=== PATIENT | male | born 1970 | race Caucasian/White ===

== ENCOUNTER 2017-02-27 08:34 | Emergency (ER) | payer SELFPAY ==
[2017-02-27 08:44] VITALS: BP 126/82
--- NOTE | 2017-02-27 10:52 | UC ---
Skin Complaint HPI - HPI Summary HPI Summary: SEVEN DAYS OF NEW RASH ON FRONT OF CHEST; HAS HAD CHRONIC ISSUE WITH SCALING OF HANDS AND HAS APPOINTMENT NEXT WEEK TO SEE A ARTIST CONSULTANT. NO KNOWN NEW PLANT, OR DETERGENT EXPOSURE. HAS TRIED OTC STEROID CREAM WITH NO SUCCESS. NO FEVER. NO COLD SYMPTOMS. NO FATIGUE. - History of Current Complaint Chief Complaint: UCGeneralIllness Time Seen by Provider: 02/27/17 10:02 Stated Complaint: RASH ON CHEST Hx Obtained From: Patient Onset/Duration: Gradual Onset, Lasting Days, Still Present Skin Exposure Onset/Duration: Days Ago Onset Severity: Mild Current Severity: Mild Pain Intensity: 0 Pain Scale Used: 0-10 Numeric Location: Discrete - ANTERIOR CHEST Character: Pruritus, Redness Aggravating: Nothing Alleviating: Nothing, OTC Creams/Salves Associated Signs & Symptoms: Positive: Rash. Negative: Nausea, Vomiting, Fever , Chills, Cough, Chest Pain, Hoarseness, Throat Tightening, Syncope, Drainage, Bruising, Tenderness, Red Streaks Related History: Possible Reaction to: Environmental Exposure - Allergy/Home Medications Allergies/Adverse Reactions: Allergies Allergy/AdvReac Type Severity Reaction Status Date / Time Penicillins Allergy Intermediate Itching Verified 02/27/17 08:39 Cefdinir [From Omnicef] AdvReac Intermediate Nausea And Verified 02/27/17 08:39 Vomiting Sodium Benzoate AdvReac Intermediate Nausea And Verified 02/27/17 08:39 [From Omnicef] Vomiting Home Medications: Home Medications Ibuprofen TAB* [Advil TAB*] 3 tab PO PRN 02/27/17 [History] Review of Systems Constitutional: Negative Skin: Rash Eyes: Negative ENT: Negative Respiratory: Negative Cardiovascular: Negative Gastrointestinal: Negative Genitourinary: Negative Motor: Negative Neurovascular: Negative Musculoskeletal: Negative Neurological: Negative Psychological: Negative All Other Systems Reviewed And Are Negative: Yes PMH/Surg Hx/FS Hx/Imm Hx Previously Healthy: Yes - Surgical History Surgical History: Yes Surgery Procedure, Year, and Place: Tonsillectomy as child - Family History Known Family History: Positive: Hypertension - Social History Occupation: Employed Full-time Lives: With Family Alcohol Use: Occasionally Substance Use Type: None Smoking Status (MU): Light Every Day Tobacco Smoker Type: Cigarettes Amount Used/How Often: 1/2 PPD Length of Time of Smoking/Using Tobacco: age 17 Have You Smoked in the Last Year: Yes Household Exposure Type: Cigarettes - Immunization History Most Recent Influenza Vaccination: no Physical Exam Triage Information Reviewed: Yes Appearance: Well-Appearing, No Pain Distress, Well-Nourished Vital Signs: Initial Vital Signs Temp 98.5 F 02/27/17 08:40 Pulse 71 02/27/17 08:40 Resp 16 02/27/17 08:40 BP 126/82 02/27/17 08:40 Pulse Ox 100 02/27/17 08:40 Vital Signs Reviewed: Yes Eye Exam: Normal ENT Exam: Normal ENT: Positive: Normal ENT inspection, Hearing grossly normal, Pharynx normal, TMs normal Dental Exam: Normal Neck exam: Normal Neck: Positive: Supple, Nontender Respiratory Exam: Normal Respiratory: Positive: Chest non-tender, Lungs clear, Normal breath sounds Cardiovascular Exam: Normal Cardiovascular: Positive: RRR, No Murmur, Pulses Normal Abdominal Exam: Normal Musculoskeletal Exam: Normal Musculoskeletal: Positive: Strength Intact, ROM Intact Neurological Exam: Normal Psychological Exam: Normal Psychological: Positive: Normal Response To Family Skin: Positive: rashes Course/Dx - Differential Diagnoses - Skin Complaint Differential Diagnoses: Cellulitis, Contact Dermatitis, Drug Rash, Eczema, Impetigo, Poison Freda, Poison Campbell, Scabies, Tinea - Diagnoses Provider Diagnoses: CONTACT DERMATITIS Discharge - Discharge Plan Condition: Stable Disposition: HOME Prescriptions: predniSONE TAB* [Deltasone TAB*] 10 mg PO DAILY #28 tab Patient Education Materials: Contact Dermatitis (ED) Referrals: [facility] [Outside] No Primary Care Phys,NOPCP [Primary Care Provider] - Images Front/Back of Body, Lg ([place]): 1 - NEW RASH HERE. DIFFUSE SMALL PRURITIC ERRYTHEMATOUS PLAQUES
== END 2017-02-27 10:30 | disposition home or self-care (01) ==
LOC: UCEAST 08:34
DX: L25.9 Unspecified contact dermatitis, unspecified cause (principal); F17.210 Nicotine dependence, cigarettes, uncomplicated
CPT/HCPCS: 99212; G0463

== ENCOUNTER 2017-12-18 12:01 | Emergency (ER) | payer SELFPAY ==
[2017-12-18 12:12] VITALS: BP 136/65
--- NOTE | 2017-12-18 12:24 | UC ---
Ear Complaint HPI - HPI Summary HPI Summary: Ahsan ear pressure for about 1-2 weeks. Not getting better. No sinus pain or dental pain. No fever. Mild cough. He feels foggy and a little off balance. - History of Current Complaint Chief Complaint: UCEar Stated Complaint: CONGESTION Time Seen by Provider: 12/18/17 12:12 Hx Obtained From: Patient Onset/Duration: Gradual Onset, Lasting Weeks Severity Initially: Moderate Severity Currently: Moderate Pain Intensity: 0 Aggravating Factors: Nothing Alleviating Factors: Nothing Associated Signs/Symptoms: Positive: URI Symptoms - Allergies/Home Medications Allergies/Adverse Reactions: Allergies Allergy/AdvReac Type Severity Reaction Status Date / Time cefdinir [From Omnicef] Allergy Intermediate itchy Verified 12/18/17 12:12 Penicillins Allergy Intermediate itchy Verified 12/18/17 12:13 PMH/Surg Hx/FS Hx/Imm Hx Previously Healthy: Yes - Surgical History Surgical History: Yes Surgery Procedure, Year, and Place: Tonsillectomy as child - Family History Known Family History: Positive: Hypertension - Social History Occupation: Employed Full-time Alcohol Use: Occasionally Substance Use Type: None Smoking Status (MU): Light Every Day Tobacco Smoker Type: Cigarettes Amount Used/How Often: 1/2 PPD Length of Time of Smoking/Using Tobacco: age 17 Have You Smoked in the Last Year: Yes Household Exposure Type: Cigarettes - Immunization History Most Recent Influenza Vaccination: no Review of Systems ENT: Sinus Congestion All Other Systems Reviewed And Are Negative: Yes Physical Exam Triage Information Reviewed: Yes Appearance: Well-Appearing, No Pain Distress, Well-Nourished Vital Signs: Initial Vital Signs Temp 98.5 F 12/18/17 12:09 Pulse 72 12/18/17 12:09 Resp 18 12/18/17 12:09 BP 136/65 12/18/17 12:09 Pulse Ox 100 12/18/17 12:09 Vital Signs Reviewed: Yes Eyes: Positive: Conjunctiva Clear. Negative: Conjunctiva Inflamed ENT: Positive: Normal ENT inspection, Pharynx normal, Nasal congestion, TM bulging - AHSAN TM bulging but still shiney, translucent and no purulent effusions., Uvula midline. Negative: Pharyngeal erythema, Nasal drainage, TM dull, TM red, Tonsillar swelling, Tonsillar exudate, Trismus, Muffled voice, Sinus tenderness Neck: Positive: Supple, Nontender, No Lymphadenopathy Respiratory: Positive: Lungs clear, Normal breath sounds, No respiratory distress, No accessory muscle use. Negative: Respiratory distress, Decreased breath sounds, Accessory muscle use, Crackles, Rhonchi, Stridor Cardiovascular: Positive: No Murmur, Pulses Normal, Brisk Capillary Refill Abdomen Description: Positive: No Organomegaly, Soft. Negative: Distended, Guarding Musculoskeletal: Positive: Strength Intact, ROM Intact, No Edema Neurological: Positive: Alert, Muscle Tone Normal. Negative: Fatigued Psychological: Positive: Age Appropriate Behavior Skin: Negative: rashes Ear Complaint Course/Dx - Differential Dx/Diagnosis Provider Diagnoses: uri. ear pressure and congestion. Discharge - Sign-Out/Discharge Documenting (check all that apply): Discharge - Discharge Plan Condition: Good Disposition: HOME Prescriptions: Fluticasone NASAL SPRAY 50MCG* [Flonase NASAL SPRAY 50MCG*] 2 spray BOTH NARES BID #1 btl Guaifenesin/Pseudo 600/60(NF) [Mucinex D 600/60 (NF)] 1 tab PO Q12H #30 tab Patient Education Materials: Earache (ED) Referrals: No Primary Care Phys,NOPCP [Primary Care Provider] - - Billing Disposition and Condition Condition: GOOD Disposition: HOME
== END 2017-12-18 12:28 | disposition home or self-care (01) ==
LOC: UCCORT 12:01
DX: J06.9 Acute upper respiratory infection, unspecified (principal); H93.90 Unspecified disorder of ear, unspecified ear; R09.81 Nasal congestion; Z88.1 Allergy status to other antibiotic agents; Z88.0 Allergy status to penicillin; F17.210 Nicotine dependence, cigarettes, uncomplicated
CPT/HCPCS: 99212; G0463

== ENCOUNTER 2018-01-10 09:37 | Emergency (ER) | payer SELFPAY ==
[2018-01-10 09:49] VITALS: BP 136/79
--- NOTE | 2018-01-10 10:44 | UC ---
Throat Pain/Nasal Wood HPI - HPI Summary HPI Summary: 47 y/o male presents to the urgent care c/o nasal congestion, sinus pain, ARTIS and B/L ear pressure and pain for the past month. Pt reports symptoms started w / a common cold and they have worsen. He has taken Mucinex D, Claritin PO and Flonase w/o any improvement of symptoms. Artis this morning was 8/10 and he took Ibuprofen PO, 1 hr ago and pain is now 5/10. Pt denies fever, dizziness, SOB, chest pain, abdominal pain, N/V/D - History of Current Complaint Chief Complaint: UCGeneralIllness Stated Complaint: HEADACHE, EAR PAIN Time Seen by Provider: 01/10/18 10:05 Hx Obtained From: Patient Onset/Duration: Gradual Onset, Lasting Weeks - 4 weeks, Still Present, Worse Since - 1 week Severity: Moderate Pain Intensity: 5 Pain Scale Used: 0-10 Numeric Cough: None Associated Signs & Symptoms: Positive: Sinus Discomfort, Nasal Discharge, Other - +PND w/ B/L ear pain and ear pressure and ARTIS - Epiglottits Risk Factors Epiglottis Risk Factors: Negative - Allergies/Home Medications Allergies/Adverse Reactions: Allergies Allergy/AdvReac Type Severity Reaction Status Date / Time cefdinir [From Omnicef] Allergy Intermediate itchy Verified 01/10/18 09:41 Penicillins Allergy Intermediate itchy Verified 01/10/18 09:41 PMH/Surg Hx/FS Hx/Imm Hx Previously Healthy: Yes - Pt denies PMHX - Surgical History Surgical History: Yes Surgery Procedure, Year, and Place: Tonsillectomy as child - Family History Known Family History: Positive: Hypertension Family History: Brain tumor - Social History Occupation: Employed Full-time Lives: With Family Alcohol Use: None Substance Use Type: None Smoking Status (MU): Light Every Day Tobacco Smoker Type: Cigarettes Amount Used/How Often: 1/2 PPD Length of Time of Smoking/Using Tobacco: age 17 Have You Smoked in the Last Year: Yes Household Exposure Type: Cigarettes - Immunization History Most Recent Influenza Vaccination: no Review of Systems Constitutional: Negative Skin: Negative Eyes: Negative ENT: Ear Ache - B/L ear pin and pressure, Nasal Discharge - yellowish, Sinus Congestion, Sinus Pain/Tenderness, Other - +PND Respiratory: Negative Cardiovascular: Negative Gastrointestinal: Negative Genitourinary: Negative Motor: Negative Neurovascular: Negative Musculoskeletal: Negative Neurological: Headache Psychological: Negative Is Patient Immunocompromised?: No All Other Systems Reviewed And Are Negative: Yes Physical Exam - Summary Physical Exam Summary: Vitals: reviewed General: Well developed, well-nourished male patient with NAD. Head and face: Normocephalic and atraumatic, Positive tenderness over the frontal and maxillary sinuses.. Eyes: PERRLA, EOMI x 2. Normal conjunctiva. No eye discharge. ENT: Ears and TM with normal limits. Nose: edematous and erythematous nasal mucosa with yellowish discharge and erythematous mucosa. Pharynx with erythema, no exudate. Neck: Supple, no JVD, no carotid bruits and no lymphadenopathy. Lungs: clear, no rales, no rhonchi, no wheezes. CVS: RRR, S1 and S2 present no murmurs or gallops appreciated. Abdomen: soft nontender with positive bowel sounds. Extremities: no edema noted. Neuro: WNL. Skin: warm and dry Triage Information Reviewed: Yes Vital Signs: Initial Vital Signs Temp 98.8 F 01/10/18 09:43 Pulse 70 01/10/18 09:43 Resp 18 01/10/18 09:43 BP 136/79 01/10/18 09:43 Pulse Ox 100 01/10/18 09:43 Throat Pain/Nasal Course/Dx - Course Course Of Treatment: 47 y/o male presents to the urgent care c/o nasal congestion, sinus pain, ARTIS and B/L ear pressure and pain for the past month. Pt reports symptoms started w/ a common cold and they have worsen. He has taken Mucinex D, Claritin PO and Flonase w/o any improvement of symptoms. Artis this morning was 8/10 and he took Ibuprofen PO, 1 hr ago and pain is now 5/10. Pt denies fever, dizziness, SOB, chest pain, abdominal pain, N/V/D. Hx obtained. pt w/ a bacterial sinusitis on examination. Pt with 4 weeks of symptoms getting worse. Pt PCN allergic. Rx Doxycycline PO and Advised to continue w/ flonase nasal spray and Claritin PO. Discharge instructions explained to Pt. Advised to Return to the clinic or PCP if symptoms do not improve.Pt understood and agreed with plan of care. - Differential Dx/Diagnosis Differential Diagnosis/HQI/PQRI: Laryngitis, Pharyngitis, Sinusitis, URI Provider Diagnoses: 1- Acute bacterial sinusitis Discharge - Sign-Out/Discharge Documenting (check all that apply): Discharge/Admit/Transfer - D/C instructions - Discharge Plan Condition: Stable Disposition: HOME Prescriptions: DOXYcycline CAP(*) [DOXYcycline 100MG CAP(*)] 100 mg PO BID #20 cap Patient Education Materials: Sinusitis (ED) Referrals: [facility] [Outside] - 1 Week Additional Instructions: 1- Please increase fluid intake and rest. take full course of antibiotic to avoid resistance 2-Continue w/ Flonase as directed to help drain fluid. Also buy saline drops to clear sinuses 3-Continue taking Loratadin/claritin PO to alleviates sinus congestion 4-F/u w/ your PCP in 1 week if symptoms do not improve for further management and treatment - Billing Disposition and Condition Condition: STABLE Disposition: HOME
== END 2018-01-10 10:48 | disposition home or self-care (01) ==
LOC: UCEAST 09:37
DX: J01.90 Acute sinusitis, unspecified (principal); Z88.1 Allergy status to other antibiotic agents; Z88.0 Allergy status to penicillin; F17.210 Nicotine dependence, cigarettes, uncomplicated
CPT/HCPCS: 99212; G0463

== ENCOUNTER 2018-01-28 09:52 | Emergency (ER) | payer SELFPAY ==
--- NOTE | 2018-01-28 10:01 | UC ---
Skin Complaint HPI - HPI Summary HPI Summary: 47 yo male presents with laceration to left hightower. He tells me that two days ago he was at work ([employer]) and a metal chair hit him in the left hightower. Sustained a 1.0cm laceration. Did not tell his work or seek medial treatment. Today he presents with green/yellow drainage from the site and redness around the area. He has been putting a bandage on it with triple anbx ointment. Denies fever/ chills. Unsure when last tetanus was, but says its been a long time. - History of Current Complaint Time Seen by Provider: 01/28/18 10:01 Stated Complaint: PUNCTURE WOUND TO LEG Hx Obtained From: Patient Onset/Duration: Sudden Onset Skin Exposure Onset/Duration: Days Ago Timing: Constant Current Severity: None - Allergy/Home Medications Allergies/Adverse Reactions: Allergies Allergy/AdvReac Type Severity Reaction Status Date / Time cefdinir [From Omnicef] Allergy Intermediate itchy Verified 01/28/18 10:12 Penicillins Allergy Intermediate itchy Verified 01/28/18 10:12 Home Medications: Home Medications Loratadine [Claritin 10 MG CAP] 1 tab PO DAILY 01/28/18 [History Confirmed 01/28] Review of Systems Constitutional: Negative Skin: Other - Leg wound Respiratory: Negative Cardiovascular: Negative Neurovascular: Negative Neurological: Negative Psychological: Negative All Other Systems Reviewed And Are Negative: Yes PMH/Surg Hx/FS Hx/Imm Hx - Additional Past Medical History Additional PMH: Seasonal allergies Previously Healthy: Yes - Surgical History Surgical History: Yes Surgery Procedure, Year, and Place: Tonsillectomy as child - Family History Known Family History: Positive: Hypertension Family History: Brain tumor - Social History Occupation: Employed Full-time Lives: With Family Alcohol Use: None Substance Use Type: None Smoking Status (MU): Light Every Day Tobacco Smoker Type: Cigarettes Amount Used/How Often: 1/2 PPD Length of Time of Smoking/Using Tobacco: age 17 Have You Smoked in the Last Year: Yes Household Exposure Type: Cigarettes - Immunization History Most Recent Influenza Vaccination: no Physical Exam - Summary Physical Exam Summary: GENERAL: NAD. WDWN. No pain distress. SKIN: Left hightower: 1.0cm linear wound with mild green/yellow thick discharge. 2.5cm of surrounding erythema with mild warmth. NTTP. No streaking. NECK: Supple. Nontender. No lymphadenopathy. CHEST: No accessory muscle use. Breathing comfortably and in no distress. CV: RRR. Without m/r/g. NEURO: Alert. CN II-XII grossly intact. PSYCH: Age appropriate behavior. Triage Information Reviewed: Yes Vital Signs: Vital Signs: Temp Pulse Resp BP Pulse Ox 98.3 F 89 18 137/71 100 01/28/18 10:05 01/28/18 10:05 01/28/18 10:05 01/28/18 10:05 01/28/18 10:05 Course/Dx - Course Course Of Treatment: Left hightower wound. Culture obtained. Start clindamycin. tdap updated today - Diagnoses Provider Diagnoses: Left hightower wound Discharge - Sign-Out/Discharge Documenting (check all that apply): Discharge/Admit/Transfer - Discharge Plan Condition: Stable Disposition: HOME Prescriptions: Clindamycin HCl 150 mg PO TID #21 capsule Patient Education Materials: Wound Infection (DC) Referrals: No Primary Care Phys,NOPCP [Primary Care Provider] - Additional Instructions: If you develop a fever, shortness of breath, chest pain, new or worsening symptoms - please call your PCP or go to the ED. - Billing Disposition and Condition Condition: STABLE Disposition: HOME
[2018-01-28 10:12] VITALS: BP 137/71
[2018-01-28] MEDS ORDERED: Tetan/Diph/Pertus SYR(Tdap)* 0.5 ML SYR(BOOSTRIX) use SYR IM ONE (10:13)
--- NOTE | 2018-01-30 19:36 | UC ---
- Progress Note Progress Note: 01/30/2018 Wound culture returned negative. Please call Pt back. Pt taking Clindamycin PO. If Pt is feeling better advised Pt to stop antibiotic. Otherwise to take full course of antibiotic to avoid resistance. Charito Pringle PA-C Discharge - Sign-Out/Discharge Documenting (check all that apply): Discharge/Admit/Transfer - D/C home - Discharge Plan Condition: Stable Disposition: HOME Prescriptions: Clindamycin HCl 150 mg PO TID #21 capsule Patient Education Materials: Wound Infection (DC) Referrals: No Primary Care Phys,NOPCP [Primary Care Provider] - Additional Instructions: If you develop a fever, shortness of breath, chest pain, new or worsening symptoms - please call your PCP or go to the ED. - Billing Disposition and Condition Condition: STABLE Disposition: HOME
== END 2018-01-28 10:30 | disposition home or self-care (01) ==
LOC: UCEAST 09:52
DX: S81.812A Laceration without foreign body, left lower leg, initial encounter (principal); W22.8XXA Striking against or struck by other objects, initial encounter; Y93.9 Activity, unspecified; Y92.512 Supermarket, store or market as the place of occurrence of the external cause; Y99.0 Civilian activity done for income or pay; Z23 Encounter for immunization; Z88.1 Allergy status to other antibiotic agents; Z88.0 Allergy status to penicillin; F17.210 Nicotine dependence, cigarettes, uncomplicated
CPT/HCPCS: 87070; 87205; 90471; 90715; 99212; G0463

== ENCOUNTER 2018-04-03 10:06 | Emergency (ER) | payer SELFPAY ==
[2018-04-03 10:16] VITALS: BP 137/98
--- NOTE | 2018-04-03 10:41 | UC ---
Psychiatric Complaint HPI - HPI Summary HPI Summary: The patient is a 47-year-old male with a 3 day history of progressively worsening anxiety. In the past he has been treated for both depression and anxiety. He has been worried about the health of his 3 cats as well as his mother. He has some mild allergy symptoms. He has increased both his caffeine use and cigarette smoking. Denies any suicidal or homicidal ideation. - History Of Current Complaint Chief Complaint: UCGeneralIllness Stated Complaint: ANXIETY Time Seen by Provider: 04/03/18 10:24 Hx Obtained From: Patient Onset/Duration: Gradual Onset, Lasting Days Timing: Constant Severity Initially: Mild Severity Currently: Moderate Character: Anxious Aggravating Factor(s): Recent Stress Alleviating Factor(s): Nothing Associated Signs And Symptoms: Negative - Allergies/Home Medications Allergies/Adverse Reactions: Allergies Allergy/AdvReac Type Severity Reaction Status Date / Time cefdinir [From Omnicef] Allergy Intermediate itchy Verified 01/28/18 10:12 Penicillins Allergy Intermediate itchy Verified 01/28/18 10:12 PMH/Surg Hx/FS Hx/Imm Hx Previously Healthy: Yes - Surgical History Surgical History: Yes Surgery Procedure, Year, and Place: Tonsillectomy as child - Family History Known Family History: Positive: Hypertension Family History: Brain tumor - Social History Alcohol Use: None Substance Use Type: None Smoking Status (MU): Light Every Day Tobacco Smoker Type: Cigarettes Amount Used/How Often: 1/2 PPD Length of Time of Smoking/Using Tobacco: age 17 Have You Smoked in the Last Year: Yes Household Exposure Type: Cigarettes - Immunization History Most Recent Influenza Vaccination: no Most Recent Tetanus Shot: UNK Review of Systems Constitutional: Negative Skin: Negative Eyes: Negative ENT: Negative Respiratory: Negative Cardiovascular: Negative Gastrointestinal: Negative Genitourinary: Negative Motor: Negative Neurovascular: Negative Musculoskeletal: Negative Neurological: Negative Psychological: Anxious Is Patient Immunocompromised?: No All Other Systems Reviewed And Are Negative: Yes Physical Exam Triage Information Reviewed: Yes Appearance: Well-Appearing, No Pain Distress, Well-Nourished, Thin Vital Signs: Initial Vital Signs Temp 99 F 04/03/18 10:12 Pulse 112 04/03/18 10:12 Resp 16 04/03/18 10:12 BP 137/98 04/03/18 10:12 Pulse Ox 99 04/03/18 10:12 Eyes: Positive: Conjunctiva Clear ENT: Positive: Hearing grossly normal, Nasal congestion, TMs normal, Uvula midline. Negative: Nasal drainage, Tonsillar swelling, Tonsillar exudate, Trismus, Muffled voice, Hoarse voice, Sinus tenderness Neck: Positive: Supple, Nontender, No Lymphadenopathy Respiratory: Positive: Lungs clear, Normal breath sounds, No respiratory distress, No accessory muscle use Cardiovascular: Positive: RRR, No Murmur, Tachycardia Musculoskeletal: Positive: ROM Intact, No Edema Neurological: Positive: Alert Psychological Exam: Normal Skin Exam: Normal Psych Complaint Course/Dx - Differential Dx/Diagnosis Provider Diagnoses: situational anxiety. cigarette use. seasonal allergies Discharge - Sign-Out/Discharge Documenting (check all that apply): Patient Departure - Discharge Plan Condition: Stable Disposition: HOME Prescriptions: hydrOXYzine HCL TAB* [Atarax TAB*] 25 mg PO QID PRN #20 tab PRN Reason: Anxiety Patient Education Materials: Anxiety (ED) Forms: *Work Release Referrals: No Primary Care Phys,NOPCP [Primary Care Provider] - Additional Instructions: the medicine prescribed is one used for both allergies and for the short term treatment of anxiety IT MAY CAUSE DROWSINESS don't take and drive or work try to decrease tobacco use and caffiene keep your Tues appt with primary - Billing Disposition and Condition Condition: STABLE Disposition: Home
== END 2018-04-03 10:45 | disposition home or self-care (01) ==
LOC: UCEAST 10:06
DX: F41.8 Other specified anxiety disorders (principal); J30.2 Other seasonal allergic rhinitis; F17.210 Nicotine dependence, cigarettes, uncomplicated; Z88.0 Allergy status to penicillin; Z88.1 Allergy status to other antibiotic agents
CPT/HCPCS: 99212; G0463

== ENCOUNTER 2018-04-19 14:41 | Emergency (ER) | payer SELFPAY ==
[2018-04-19 15:05] VITALS: BP 136/71
--- NOTE | 2018-04-19 15:15 | UC ---
Rectal Pain HPI - HPI Summary HPI Summary: Patient is a 47 year old man who present today with hemorrhoids pain for past 2 days. He has a h/o hemorrhoids but this time it was worst and there is associated bleeding . Pain has got better after it started to bleed. NOt much pain today but was 4/10 . Denies any other associated symptom. Also has a small rash that he noted on the left buttock . Denies any fever, chills, cough chest pain or shortness of breath . No diaphoresis. Denies any abdominal pain , nausea or vomiting , diarrhea or constipation. He has not tried any over the counter medication so far - History Of Current Complaint Chief Complaint: UCGeneralIllness Stated Complaint: PERSONAL Time Seen by Provider: 04/19/18 14:56 Hx Obtained From: Patient Onset/Duration: Sudden Onset Pain Intensity: 0 - Allergies/Home Medications Allergies/Adverse Reactions: Allergies Allergy/AdvReac Type Severity Reaction Status Date / Time cefdinir [From Omnicef] Allergy Intermediate itchy Verified 04/19/18 15:05 Penicillins Allergy Intermediate itchy Verified 04/19/18 15:05 PMH/Surg Hx/FS Hx/Imm Hx - Additional Past Medical History Additional PMH: anxiety , does not take any medications Previously Healthy: Yes Other Endocrine History: negative Other Cardiovascular History: negative Other Respiratory History: negative GI/ History: Other - hemorrhoids Other GI/ History: negative Other Neurological History: negative Psychological History: Anxiety Other Psychological History: negative Other Cancer History: negative - Surgical History Surgical History: Yes Surgery Procedure, Year, and Place: Tonsillectomy as child - Family History Known Family History: Positive: Hypertension Family History: Brain tumor - Social History Alcohol Use: Rare Substance Use Type: None Smoking Status (MU): Light Every Day Tobacco Smoker Type: Cigarettes Amount Used/How Often: 1/2 PPD Length of Time of Smoking/Using Tobacco: age 17 Have You Smoked in the Last Year: Yes Household Exposure Type: Cigarettes - Immunization History Most Recent Influenza Vaccination: no Most Recent Tetanus Shot: UNK Review of Systems Constitutional: Negative Skin: Rash - left bottock ENT: Negative Respiratory: Negative Cardiovascular: Negative Gastrointestinal: Other - rectal pain, bleeding Genitourinary: Negative Motor: Negative Neurovascular: Negative Musculoskeletal: Negative Neurological: Negative Psychological: Negative Is Patient Immunocompromised?: No All Other Systems Reviewed And Are Negative: Yes Physical Exam - Summary Physical Exam Summary: Physical Exam: Const: Appears well. No signs of apparent distress present. Alert and oriented x 3. Musculo: Walks with a normal gait. Head/Face: Atraumatic, normocephalic on inspection. Eyes: EOMI and PERRLA in both eyes. Conjunctivae clear. No discharge noted ENT: Hearing normal, TM normal appearing bilaterally . Respiratory: Respirations are unlabored. Lungs clear to auscultation bilaterally, no wheezing , rhonchi or rales noted . CVS: Regular rate and Rhythm, S1S2 normal , no murmurs identified. Extremities: Peripheral circulation is grossly normal. Pulses 2+ Abdomen : Soft non tender , nondistended , Bowel sounds present . No guarding , rebound tenderness or rigidity noted. Rectal exam: 2 small pea sized external hemorrhoid noted. one with scant bleeding but no aurea bleeding . non tender to palpate. Skin: mild erythematous rash noted on left buttock : normal testicles , no hernia or swelling or tenderness. Neuro: Cranial nerves II to XII intact, motor and sensory intact. DTR Intact bilaterally. Mood is normal. Affect is normal. Triage Information Reviewed: Yes Vital Signs: Initial Vital Signs Temp 98.5 F 04/19/18 15:00 Pulse 76 04/19/18 15:00 Resp 18 04/19/18 15:00 BP 136/71 04/19/18 15:00 Pulse Ox 100 04/19/18 15:00 Vital Signs Reviewed: Yes Rectal Pain Course/Dx - Course Course Of Treatment: During the visit today, we discussed the findings and further plan that he will need surgery. There is also a mild rash note don left buttock and appears to be fungal, topical antifungal cream eprescribed along with medication for the hemorrhoid.Plan to [place] with general surgery . Patient expressed understanding . - Differential Dx/Diagnosis Provider Diagnoses: External hemorrhoids Discharge - Sign-Out/Discharge Documenting (check all that apply): Patient Departure - Discharge Plan Condition: Stable Disposition: HOME Prescriptions: Clotrimazole 1% TOPICAL (NF) [Lotrimin 1% TOPICAL (NF)] 1 applic TOPICAL BID #1 tube Hydrocortisone SUPP* [Anusol HC Supp*] 25 mg .SEE ORDER BID #1 supp Patient Education Materials: Hemorrhoids (ED) Referrals: [facility] [Outside] - 1 Week Seamus Manning MD [Medical Doctor] - Additional Instructions: Please start using the medication as prescribed to the pharmacy . You can use topical antifungal cream on your left buttock - clotrimazole. Follow up with your primary care doctor in 1 week. Please follow up with General Surgery in 2 days for the consult Patients blood pressure slightly high in Urgent care today , plan follow up with PCP for better control Return to Urgent care / ER if symptoms get worse. - Billing Disposition and Condition Condition: STABLE Disposition: Home
== END 2018-04-19 15:36 | disposition home or self-care (01) ==
LOC: UCCORT 14:41
DX: K64.4 Residual hemorrhoidal skin tags (principal); Z88.0 Allergy status to penicillin; Z88.1 Allergy status to other antibiotic agents
CPT/HCPCS: 99212; G0463

== ENCOUNTER 2018-07-13 09:21 | Emergency (ER) | payer SELFPAY ==
[2018-07-13 09:40] VITALS: BP 144/77
--- NOTE | 2018-07-13 10:25 | ED ---
Upper Extremity Pain - HPI Summary HPI Summary: pt presents for evaluation of his right arm numbness. he states that he works a lot. 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 he states that spprox 1.5 weeks ago. his right ring and small finger went numb. he further states that when he turns his head and it is in a certain position, a significant portion of his right arm goes numb. he denies any trauma, car accidents, etc. - History of Current Complaint Chief Complaint: UCUpperExtremity Stated Complaint: RIGHT ARM NUMBNESS Hx Obtained From: Patient Mechanism Of Injury: Unknown Onset/Duration: Started Weeks Ago - 1.5 weeks Timing: Constant, Intermittent Severity Initially: Mild Severity Currently: Mild Pain Location: Arm Aggravating Factor(s): Other - head positions Alleviating Factor(s): Other - certain head positions - Allergies/Home Medications Allergies/Adverse Reactions: Allergies Allergy/AdvReac Type Severity Reaction Status Date / Time cefdinir [From Omnicef] Allergy Intermediate itchy Verified 07/13/18 09:33 Penicillins Allergy Intermediate itchy Verified 07/13/18 09:33 PMH/Surg Hx/FS Hx/Imm Hx Previously Healthy: Yes Endocrine/Hematology History: Denies: Hx Diabetes, Hx Thyroid Disease Cardiovascular History: Denies: Hx Hypertension Respiratory History: Denies: Hx Asthma, Hx Chronic Obstructive Pulmonary Disease (COPD) GI History: Denies: Hx Ulcer - Surgical History Surgery Procedure, Year, and Place: Tonsillectomy as child Infectious Disease History: No Infectious Disease History: Denies: Hx Clostridium Difficile, Hx Hepatitis, Hx Human Immunodeficiency Virus (HIV), Hx of Known/Suspected MRSA, Hx Shingles, Hx Tuberculosis, Traveled Outside the in Last 30 Days - Family History Known Family History: Positive: Hypertension Family History: Brain tumor - Social History Alcohol Use: None Substance Use Type: Reports: None Smoking Status (MU): Heavy Every Day Tobacco Smoker Type: Cigarettes Amount Used/How Often: 1/2 PPD Length of Time of Smoking/Using Tobacco: age 17 Have You Smoked in the Last Year: Yes Review of Systems Constitutional: Negative Eyes: Negative ENT: Negative Cardiovascular: Negative Respiratory: Negative Gastrointestinal: Negative Genitourinary: Negative Positive: Other - right arm numbness Skin: Negative Positive: Paresthesia, Numbness. Negative: Weakness Psychological: Normal All Other Systems Reviewed And Are Negative: No Physical Exam Triage Information Reviewed: No Vital Signs On Initial Exam: Initial Vitals Temp Pulse Resp BP Pulse Ox 97.5 F 96 16 144/77 100 07/13/18 09:35 07/13/18 09:35 07/13/18 09:35 07/13/18 09:35 07/13/18 09:35 Vital Signs Reviewed: Yes Appearance: Positive: Well-Appearing, No Pain Distress, Well-Nourished Skin: Positive: Warm, Dry Eyes: Positive: Normal, EOMI ENT: Positive: Normal ENT inspection, Hearing grossly normal, Pharynx normal Neck: Positive: Supple, Nontender Respiratory/Lung Sounds: Positive: Clear to Auscultation, Breath Sounds Present Cardiovascular: Positive: Normal, RRR Abdomen Description: Positive: Nontender, Soft Bowel Sounds: Positive: Present Musculoskeletal: Positive: Normal, Strength/ROM Intact Neurological: Positive: Other - paresthesias ro right small and ring finger, nl strength, nl matting press tender. no muscle wasting noted to arm or hand or interosseous muscles Psychiatric: Positive: Normal AVPU Assessment: Alert Diagnostics - Vital Signs Vital Signs Temp Pulse Resp BP Pulse Ox 07/13/18 09:35 97.5 F 96 16 144/77 100 - Laboratory Lab Statement: Any lab studies that have been ordered have been reviewed, and results considered in the medical decision making process. Course/Dx - Course Course Of Treatment: I discussed with pt the fact that he has a cervical radiculopathy. He has no insurance, no pcp. I informed him that it is urgent that he gets an MRI of his neck especially in light of the fact that he has had a rapid progression of his symptoms. I requested that he go to the closest ED if his symptoms worsen. I gave him a work excuse for the next 3 days so he can work on getting a pcp and insurance. I instructed him not to do any heavy lifting. - Diagnoses Provider Diagnoses: Cervical radiculopathy Discharge - Sign-Out/Discharge Documenting (check all that apply): Patient Departure All imaging exams completed and their final reports reviewed: No Studies - Discharge Plan Condition: Stable Disposition: HOME Prescriptions: predniSONE TAB* [Deltasone 20 MG TAB*] 60 mg PO DAILY #21 tab MDD 3 Patient Education Materials: Cervical Radiculopathy (ED) Forms: *Work Release Referrals: [facility] [Provider Group] No Primary Care Phys,NOPCP [Primary Care Provider] - Additional Instructions: Please establish care with a primary care physician as soon as possible. you need a MRI of your neck. if your symptoms persist or worsen, please go to the emergency dept for further evaluation. Take motrin in addition to the prednisone I prescribed you for neck. - Billing Disposition and Condition Condition: STABLE Disposition: Home
== END 2018-07-13 10:35 | disposition home or self-care (01) ==
LOC: UCCORT 09:21
DX: M54.12 Radiculopathy, cervical region (principal); F17.210 Nicotine dependence, cigarettes, uncomplicated
CPT/HCPCS: 99212; G0463

== ENCOUNTER 2018-07-14 09:40 | Emergency (ER) | payer SELFPAY ==
--- NOTE | 2018-07-14 12:38 | ED ---
Neck Pain - HPI Summary HPI Summary: Patient is a 47-year-old male percent to the ED with right-sided posterior neck pain radiating to the scapula region and radiating down to the right arm affecting the ring and little finger. He states this is been present times several days, has not been worsening. His work is very physical and he states he lifts heavy objects with his right hand and shoulder (Rt hand dominant). He has never had anything like this before. He denies any reduction in strength. Denies any limitations with mobility. The numbness and tingling is intermittent and only involving the ring and little finger. Denies any back pain. He states the pain distress clear over his scapula radiating upwards into his neck and radiating down the right arm. This is not worse or better with movement. However he states when rotating his head to the right side, the numbness and tingling worsens. He is experiencing no neurologic deficit. No trauma to the area. - History of Current Complaint Chief Complaint: EDNeckComplaint Stated Complaint: RT ARM NUMBNESS Time Seen by Provider: 07/14/18 11:45 Hx Obtained From: Patient Onset/Duration Of Injury/Symptoms: Days Timing: Intermittent Onset/Duration: Gradual Onset Severity Initially: Moderate Severity Currently: Moderate Pain Intensity: 3 Pain Scale Used: 0-10 Numeric Location: Discrete At: - right scapular region radiating to the R cervical spine and R arm with n/t to the ring and little finger Aggravating Factors: Nothing Alleviating Factors: Nothing Associated Signs & Symptoms: Positive: Negative - Risk Factors Meningitis Risk Factors: Negative - Allergies/Home Medications Allergies/Adverse Reactions: Allergies Allergy/AdvReac Type Severity Reaction Status Date / Time cefdinir [From Omnicef] Allergy Intermediate GI Upset Verified 07/14/18 09:59 Penicillins Allergy Intermediate itchy Verified 07/14/18 09:59 PMH/Surg Hx/FS Hx/Imm Hx Previously Healthy: Yes Endocrine/Hematology History: Denies: Hx Diabetes, Hx Thyroid Disease Cardiovascular History: Denies: Hx Hypertension Respiratory History: Denies: Hx Asthma, Hx Chronic Obstructive Pulmonary Disease (COPD) GI History: Denies: Hx Ulcer - Surgical History Surgery Procedure, Year, and Place: Tonsillectomy as child - Immunization History Hx Pertussis Vaccination: No Immunizations Up to Date: Yes Infectious Disease History: Yes Infectious Disease History: Denies: Hx Clostridium Difficile, Hx Hepatitis, Hx Human Immunodeficiency Virus (HIV), Hx of Known/Suspected MRSA, Hx Shingles, Hx Tuberculosis, Traveled Outside the [place] in Last 30 Days - Family History Known Family History: Positive: Hypertension Family History: Brain tumor - Social History Occupation: Employed Full-time Lives: With Family Alcohol Use: None Hx Substance Use: No Substance Use Type: Reports: None Hx Tobacco Use: Yes Smoking Status (MU): Heavy Every Day Tobacco Smoker Type: Cigarettes Amount Used/How Often: 1/2 PPD Length of Time of Smoking/Using Tobacco: age 17 Have You Smoked in the Last Year: Yes Review of Systems Negative: Fever, Chills, Fatigue, Skin Diaphoresis Negative: Palpitations, Chest Pain Negative: Shortness Of Breath, Cough Genitourinary: Negative Positive: no symptoms reported, see HPI Positive: Arthralgia, Myalgia Skin: Negative Positive: Paresthesia, Numbness Psychological: Normal All Other Systems Reviewed And Are Negative: Yes Physical Exam Triage Information Reviewed: Yes Vital Signs On Initial Exam: Initial Vitals Temp Pulse Resp BP Pulse Ox 98.5 F 115 16 149/94 98 07/14/18 09:56 07/14/18 09:56 07/14/18 09:56 07/14/18 09:56 07/14/18 09:56 Vital Signs Reviewed: Yes Appearance: Positive: Well-Appearing, Well-Nourished Skin: Positive: Warm, Skin Color Reflects Adequate Perfusion Head/Face: Positive: Normal Head/Face Inspection Eyes: Positive: EOMI, OPAL, Conjunctiva Clear Neck: Positive: Other: - right scapular region radiating to the R cervical spine and R arm with n/t to the ring and little finger Cardiovascular: Positive: RRR, Pulses are Symmetrical in both Upper and Lower Extremities Musculoskeletal: Positive: Pain @ - right cervical spine without posterior cervical spine tenderness Neurological: Positive: Speech Normal Psychiatric: Positive: Normal, Affect/Mood Appropriate AVPU Assessment: Alert Diagnostics - Vital Signs Vital Signs Temp Pulse Resp BP Pulse Ox 07/14/18 09:56 98.5 F 115 16 149/94 98 - Laboratory Lab Statement: Any lab studies that have been ordered have been reviewed, and results considered in the medical decision making process. Neck Course/Dx - Course Course Of Treatment: On physical examination, there is no decreased strength bilaterally. Pulses +2 intact bilaterally. Good cap refill. There is tenderness to the right trapezius radiating up into the right cervical area without posterior cervical spine tenderness directly. There is no decreased sensation on light and deep palpation, thumb opposition intact. Patient appears well otherwise. However, patient continues to experience numbness and tingling to the ring and little finger intermittently. He was sent here for an MRI by urgent care, however this appears to be an overuse injury with calcifications/scar tissue causing neuropathy and not from cervical spine damage causing decreased strength, he does not at this time need an emergent MRI. I will however refer him to [facility] to further discuss the possibility of obtaining a CT or MRI if this worsens. In the meantime, gentle stretches, moist heat to the area, ibuprofen 600mg 4 times daily as well his his prescribed steroid. He is also encouraged massage to the area. - Diagnoses Differential Dx/HQI/PQRI: Positive: Dystonia Provider Diagnoses: Cervical radiculopathy Discharge - Sign-Out/Discharge Documenting (check all that apply): Patient Departure - Discharge Plan Condition: Stable Disposition: HOME Referrals: No Primary Care Phys,NOPCP [Primary Care Provider] - Additional Instructions: Tennis ball to the back foot/scapula area Moist heat to the area as much as possible Gentle stretches, neck rotation and movement Arm to the wall and pull the scapula muscle [id number] - [facility] - call tomorrow for an appt Rest the arm as much as possible and try not to overuse Ibpurofen 600mg four times daily x 4-5 days consistently Continue with the steroids Massage to the area will help [facility] may decide you need a CT or an MRI This is not emergent at this time - Billing Disposition and Condition Condition: STABLE Disposition: Home
[2018-07-14 13:06] VITALS: BP 0/0
== END 2018-07-14 13:04 | disposition home or self-care (01) ==
LOC: ED 09:40
DX: M54.12 Radiculopathy, cervical region (principal); Z88.0 Allergy status to penicillin; F17.210 Nicotine dependence, cigarettes, uncomplicated
CPT/HCPCS: 99282

== ENCOUNTER 2018-10-11 08:57 | Emergency (ER) | payer SELFPAY ==
[2018-10-11 09:05] VITALS: BP 138/77
--- NOTE | 2018-10-11 09:15 | UC ---
Throat Pain/Nasal Wood HPI - HPI Summary HPI Summary: Patient: C/O left ear discomfort, mild, intermittent, fluctuating over 3 months with left sinus, maxillary, discomfort. Also dorsum of hand redness and areas on face. Concerned about fungal infection. 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 MD: CLEMENTE; 138/77 nurse's note: left ear and sinus pressure and general fatique x 3 days also changes in skin since stopped smoking - History of Current Complaint Chief Complaint: UCGeneralIllness Stated Complaint: SINUS PAIN Time Seen by Provider: 10/11/18 09:07 Pain Intensity: 0 - Allergies/Home Medications Allergies/Adverse Reactions: Allergies Allergy/AdvReac Type Severity Reaction Status Date / Time cefdinir [From Omnicef] Allergy Intermediate GI Upset Verified 07/14/18 09:59 Penicillins Allergy Intermediate itchy Verified 07/14/18 09:59 PMH/Surg Hx/FS Hx/Imm Hx Previously Healthy: Yes Psychological History: Anxiety - Surgical History Surgical History: Yes Surgery Procedure, Year, and Place: Tonsillectomy as child - Family History Known Family History: Positive: Hypertension, Other - brain tumor Family History: Brain tumor - Social History 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 Negative: Fever Skin: Positive: Rash - mild redness dorsum of hands; feels "tight"; also a few spots of mild redness on face.. Negative: Other Eyes: Positive: Negative ENT: Positive: Negative Respiratory: Positive: Negative Cardiovascular: Positive: Negative Gastrointestinal: Positive: Negative Genitourinary: Positive: Negative Motor: Positive: Negative Neurovascular: Positive: Negative Musculoskeletal: Positive: Negative Neurological: Positive: Negative Psychological: Positive: Negative Is Patient Immunocompromised?: Yes Physical Exam Triage Information Reviewed: Yes Appearance: Well-Appearing, No Pain Distress Vital Signs: Initial Vital Signs Temp 98 F 10/11/18 09:01 Pulse 96 10/11/18 09:01 Resp 17 10/11/18 09:01 BP 138/77 10/11/18 09:01 Pulse Ox 100 10/11/18 09:01 Vital Signs Reviewed: Yes Eye Exam: Normal ENT Exam: Normal ENT: Positive: TMs normal, TM bulging - fluid behind left drum, Sinus tenderness - left. Negative: TM dull, TM red, Tonsillar swelling Dental Exam: Normal Neck exam: Normal Neck: Positive: Supple Respiratory Exam: Normal Respiratory: Positive: Chest non-tender, Lungs clear, Normal breath sounds Cardiovascular Exam: Normal Cardiovascular: Positive: RRR, No Murmur, Pulses Normal Abdominal Exam: Normal Abdomen Description: Positive: Nontender, No Organomegaly, Soft Bowel Sounds: Positive: Present Musculoskeletal Exam: Normal Neurological Exam: Normal Psychological Exam: Normal Skin Exam: Normal Skin: Positive: Rashes - dorsum of hands, mild redness; no ascending cellulitis , lymphangitis; on face two 2.0 cm areas of very mild redness; rash most consistent with allergic reaction or cold exposure. Throat Pain/Nasal Course/Dx - Course Course Of Treatment: 47 yo with c/o left ear, left sinus discomfort and red hands. Dx: is serous otitis and sinus congestion. Rash on hands may be fungal or allergic or exposure to cold. Does not look like an infection. Previous hx of oral antifungal. Discussed conditioin with patient. Will start on antibiotic and decongest. Patient concerned about cost. Will use hydrocortisone and antifungal on hands and face and follow up as needed with chairperson anesthesiology. Stopped smoking one week ago. MEDICATIONS REVIEWED. HYPERTENSION STATUS REVIEWED. Patient is urgent/emergent causing mild elevation. - Differential Dx/Diagnosis Differential Diagnosis/HQI/PQRI: Otitis Media, Sinusitis, Other - skin erythema , unclear etiology Provider Diagnosis: Otitis media, serous, Dermatitis Discharge - Sign-Out/Discharge Documenting (check all that apply): Patient Departure All imaging exams completed and their final reports reviewed: No Studies - Discharge Plan Condition: Stable Disposition: HOME Patient Education Materials: Dermatitis (ED), Serous Otitis Media (ED) Referrals: No Primary Care Phys,NOPCP [Primary Care Provider] - Additional Instructions: PLEASE SEEK CARE AT THE EMERGENCY DEPARTMENT IF SYMPTOMS WORSEN OR IF NEW SYMPTOMS DEVELOP. FOLLOW UP WITH YOUR PRIMARY CARE PHYSICIAN IF CONDITION CONTINUES BEYOND 3 DAYS WITHOUT IMPROVEMENT. YOUR DIAGNOSIS IS: ear congestion; skin dermatitis YOUR PRESCRIPTION RECOMMENDATION IS: DOXYCYCLINE OTHER INSTRUCTIONS: See below for congestion; for skin, get hydrocortisone cream and anti-fungal cream over the counter and use 3 times a day for 7-10 days on rash. Keep hands protected from cold or exposure to irritants. Follow up with chairperson anesthesiology. TRY TO CLEAR NOSE: AFRIN NASAL SPRAY: 2-3 SPRAYS PER NOSTRIL, TWICE A DAY FOR TWO DAYS ONLY. STAND UNDER SHOWER STREAM TO LOOSEN SECRETIONS. USE A VAPORIZOR. STAY AWAY FROM ANY SMOKE OR IRRITANTS. USE SALINE NASAL SPRAY TO KEEP FLOW OF MUCOUS FROM NOSTRILS AND SINUSES. CONSIDER USING NETI POT TO HELP WITH ALLERGIES AND CONGESTION IN THE NOSE. USE THIS THREE TIMES A WEEK. YOU CAN GET THIS AT [facility] IN [place] OR VARIOUS DRUGSTORES. DRINK LOTS OF WARM FLUIDS USEFUL HOME REMEDIES: WARM WATER GARGLES, WITH TSP OF SALT PER 8 OUNCES OF WATER, GARGLE FOR A FEW SECONDS AND SPIT OUT; GARGLE AND SPIT OUT; EVERY THREE HOURS. AND/OR: WARM WATER OR TEA, HONEY AND LEMON; 2-3 CUPS A DAY. RE-CHECK IN 1O DAYS NEEDED. RE-CHECK SOONER IF INCREASED PAIN OR TEMPERATURE. - Billing Disposition and Condition Condition: STABLE Disposition: Home
== END 2018-10-11 09:50 | disposition home or self-care (01) ==
LOC: UCEAST 08:57
DX: H65.92 Unspecified nonsuppurative otitis media, left ear (principal); L30.9 Dermatitis, unspecified; R53.83 Other fatigue; Z88.0 Allergy status to penicillin; Z88.1 Allergy status to other antibiotic agents; Z87.891 Personal history of nicotine dependence
CPT/HCPCS: 99212; G0463

== ENCOUNTER 2019-01-07 10:38 | Emergency (ER) | payer SELFPAY ==
[2019-01-07 10:58] VITALS: BP 133/79
--- NOTE | 2019-01-07 11:24 | UC ---
General HPI - HPI Summary HPI Summary: Patient states he has been battling allergies and sinus infections. He thinks he was on antibiotics in the past month for sinus infection. Has been using flonase for the past week which has been helping. No fever. COngestiong. DIffuse headache. Starting to get fungal infection on hands which is when he knows that he is having issues with his immune system. He was on lamisal for three months prescribed by his creative arts therapist in the past. Now with concern of oral thrush with white spots on his tongue and a sore throat. States he has HIV testing in the past but he is concerned about his immune system. When he gets a headache he feels like his vision is off as well. He wears contacts and he has bad vision to begin with. No sinus pain. Meds: REviewed - History of Current Complaint Chief Complaint: UCGeneralIllness Stated Complaint: PERSONAL Time Seen by Provider: 01/07/19 11:11 Pain Intensity: 4 - Allergy/Home Medications Allergies/Adverse Reactions: Allergies Allergy/AdvReac Type Severity Reaction Status Date / Time cefdinir [From Omnicef] Allergy Intermediate GI Upset Verified 07/14/18 09:59 Penicillins Allergy Intermediate itchy Verified 07/14/18 09:59 Home Medications: Home Medications Fluticasone Propionate [Flonase Allergy Relief] 50 mcg NA DAILY 01/07/19 [ History Confirmed 01/07/19] PMH/Surg Hx/FS Hx/Imm Hx Previously Healthy: Yes - Surgical History Surgical History: Yes Surgery Procedure, Year, and Place: Tonsillectomy as child - Family History Known Family History: Positive: Hypertension, Other - brain tumor Family History: Brain tumor - Social History Alcohol Use: None Substance Use Type: None Smoking Status (MU): Light Every Day Tobacco Smoker Type: Cigarettes Amount Used/How Often: 1/2 PPD Length of Time of Smoking/Using Tobacco: age 17 Have You Smoked in the Last Year: Yes Household Exposure Type: Cigarettes - Immunization History Most Recent Influenza Vaccination: no Most Recent Tetanus Shot: UNK Review of Systems All Other Systems Reviewed And Are Negative: Yes Constitutional: Positive: Negative ENT: Positive: Sore Throat, Sinus Congestion Physical Exam Triage Information Reviewed: Yes Appearance: Well-Appearing Vital Signs: Initial Vital Signs Temp 98.5 F 01/07/19 10:51 Pulse 98 01/07/19 10:51 Resp 16 05/01/19 10:51 BP 133/79 01/07/19 10:51 Pulse Ox 100 01/07/19 10:51 Vital Signs Reviewed: Yes ENT: Positive: Nasal congestion, TMs normal, Other - white patches on tongue and on oropharynx Neck: Positive: Supple, Nontender Respiratory: Positive: Lungs clear, Normal breath sounds Cardiovascular: Positive: RRR, No Murmur Skin: Positive: Other - b/l hands diffusely erythematous. Course/Dx - Course Course Of Treatment: This is a 48 yr old with concern for rash, sore throat and congestion Assessment Nontoxic appearing Concerned about his immunity. DIscussed getting a CBC and HIV. COuld just be that he was on antibiotics recently Plan We will contact you if labs are abnormal Recommend starting an antihistamine such as zyrtec or claritin Continue Flonase Start Nystatin as prescribed REcommend follow up with Dermatology for hand rash and treatment - Diagnoses Provider Diagnosis: Oral thrush, Seasonal allergies Discharge - Sign-Out/Discharge Documenting (check all that apply): Patient Departure All imaging exams completed and their final reports reviewed: No Studies - Discharge Plan Condition: Good Disposition: HOME Prescriptions: Nystatin SUSPENSION* 500,000 units PO QID #1 bottle Patient Education Materials: Oral Candidiasis (ED) Referrals: No Primary Care Phys,NOPCP [Primary Care Provider] - Additional Instructions: We will contact you if your labs are abnormal Recommend starting an antihistamine such as zyrtec or claritin Continue Flonase Start Nystatin as prescribed REcommend follow up with Dermatology for hand rash and treatment - Billing Disposition and Condition Condition: GOOD Disposition: Home
[2019-01-07 19:04] LABS: ABS Basophils 0.1 10^3/ul (0-0.2); ABS Eosinophils 0.1 10^3/ul (0-0.6); ABS Lymphocytes 1.8 10^3/ul (1.0-4.8); ABS Monocytes 0.6 10^3/ul (0-0.8); ABS Neutrophils 3.4 10^3/ul (1.5-7.7); ABS Nucleated RBC 0 10^3/ul; Eosinophil % 2.3 %; Hematocrit 48 % (42-52); Hemoglobin 16.3 g/dL (14.0-18.0); Lymphocyte % 30.1 %; Mean Corpuscular HGB Conc 34 g/dL (31-36); Mean Corpuscular Hemoglobin 30 pg (27-31); Mean Corpuscular Volume 89 fL (80-94); Mean Platelet Volume 9.2 fL (7.4-10.4); Nucleated Red Blood Cells % 0.2; Platelet Count 210 10^3/uL (150-450); Red Blood Count 5.38 10^6 /uL (4.18-5.48); Red Cell Distribution Width 13 % (10.5-15); White Blood Count 5.9 10^3/uL (3.5-10.8)
--- NOTE | 2019-01-08 07:46 | UC ---
- Progress Note Progress Note: Patient with normal CBC. HIV test still pending. Course/Dx - Diagnoses Provider Diagnoses: Oral thrush, Seasonal allergies Discharge - Sign-Out/Discharge Documenting (check all that apply): Post-Discharge Follow Up All imaging exams completed and their final reports reviewed: No Studies - Discharge Plan Condition: Good Disposition: HOME Prescriptions: Nystatin SUSPENSION* 500,000 units PO QID #1 bottle Patient Education Materials: Oral Candidiasis (ED) Referrals: No Primary Care Phys,NOPCP [Primary Care Provider] - Additional Instructions: We will contact you if your labs are abnormal Recommend starting an antihistamine such as zyrtec or claritin Continue Flonase Start Nystatin as prescribed REcommend follow up with Dermatology for hand rash and treatment - Billing Disposition and Condition Condition: GOOD Disposition: Home
--- NOTE | 2019-01-09 11:22 | UC ---
- Progress Note Progress Note: Hiv 1&2 AB reviewed. Nonreactive. Course/Dx - Diagnoses Provider Diagnoses: Oral thrush, Seasonal allergies Discharge - Sign-Out/Discharge Documenting (check all that apply): Post-Discharge Follow Up All imaging exams completed and their final reports reviewed: No Studies - Discharge Plan Condition: Good Disposition: HOME Prescriptions: Nystatin SUSPENSION* 500,000 units PO QID #1 bottle Patient Education Materials: Oral Candidiasis (ED) Referrals: No Primary Care Phys,NOPCP [Primary Care Provider] - Additional Instructions: We will contact you if your labs are abnormal Recommend starting an antihistamine such as zyrtec or claritin Continue Flonase Start Nystatin as prescribed REcommend follow up with Dermatology for hand rash and treatment - Billing Disposition and Condition Condition: GOOD Disposition: Home
== END 2019-01-07 11:48 | disposition home or self-care (01) ==
LOC: UCCORT 10:38
DX: B37.0 Candidal stomatitis (principal); J30.2 Other seasonal allergic rhinitis; J02.9 Acute pharyngitis, unspecified; F17.210 Nicotine dependence, cigarettes, uncomplicated; Z88.0 Allergy status to penicillin; Z88.8 Allergy status to other drugs, medicaments and biological substances
CPT/HCPCS: 36415; 85025; 86703; 99212; G0463

== ENCOUNTER 2019-01-25 22:53 | Emergency (ER) | payer SELFPAY ==
--- NOTE | 2019-01-25 23:14 | ED ---
Dizziness - HPI Summary HPI Summary: This patient is a 48 year old male brought in by EMS presenting to [facility] with a chief complaint of vertigo since 2 hours ago. The patient states he has been experiencing nausea, vomiting and ringing in his ears. He states he has been off balance when he ambulates. - History Of Current Complaint Chief Complaint: EDDizziness Stated Complaint: "NAUSEA/ DIZZINESS PER EMT" Time Seen by Provider: 01/25/19 22:58 Hx Obtained From: Patient Onset/Duration: Still Present Timing: Constant Character: Dizzy - Allergies/Home Medications Allergies/Adverse Reactions: Allergies Allergy/AdvReac Type Severity Reaction Status Date / Time cefdinir [From Omnicef] Allergy Intermediate GI Upset Verified 07/14/18 09:59 Penicillins Allergy Intermediate itchy Verified 07/14/18 09:59 PMH/Surg Hx/FS Hx/Imm Hx Endocrine/Hematology History: Denies: Hx Diabetes, Hx Thyroid Disease Cardiovascular History: Denies: Hx Hypertension Respiratory History: Denies: Hx Asthma, Hx Chronic Obstructive Pulmonary Disease (COPD) GI History: Denies: Hx Ulcer - Surgical History Surgery Procedure, Year, and Place: Tonsillectomy as child - Immunization History Immunizations Up to Date: Yes Infectious Disease History: No Infectious Disease History: Denies: Hx Clostridium Difficile, Hx Hepatitis, Hx Human Immunodeficiency Virus (HIV), Hx of Known/Suspected MRSA, Hx Shingles, Hx Tuberculosis, Traveled Outside the [place] in Last 30 Days - Family History Known Family History: Positive: Hypertension, Other - brain tumor Family History: Brain tumor - Social History Alcohol Use: None Hx Substance Use: No Substance Use Type: Reports: None Hx Tobacco Use: Yes Smoking Status (MU): Light Every Day Tobacco Smoker Type: Cigarettes Amount Used/How Often: 1/2 PPD Length of Time of Smoking/Using Tobacco: age 17 Have You Smoked in the Last Year: Yes Review of Systems Positive: Vomiting, Nausea Neurological: Other - Vertigo/ringing in the ears. All Other Systems Reviewed And Are Negative: Yes Physical Exam - Summary Physical Exam Summary: VITAL SIGNS: Reviewed. GENERAL: Patient is a well-developed and nourished MALE who is lying comfortable in the stretcher. Patient is not in any acute respiratory distress. HEAD AND FACE: No signs of trauma. No ecchymosis, hematomas or skull depressions. No sinus tenderness. EYES: PERRLA, EOMI x 2, No injected conjunctiva, no nystagmus. EARS: Hearing grossly intact. Ear canals and tympanic membranes are within normal limits. MOUTH: Oropharynx within normal limits. NECK: Supple, trachea is midline, no adenopathy, no JVD, no carotid bruit, no c- spine tenderness, neck with full ROM CHEST: Symmetric, no tenderness at palpation LUNGS: Clear to auscultation bilaterally. No wheezing or crackles. CVS: Regular rate and rhythm, S1 and S2 present, no murmurs or gallops appreciated. ABDOMEN: Soft, non-tender. No signs of distention. No rebound no guarding, and no masses palpated. Bowel sounds are normal. EXTREMITIES: FROM in all major joints, no edema, no cyanosis or clubbing. NEURO: Alert and oriented x 3. No acute neurological deficits. Speech is normal and follows commands. Normal coordination finger to nose. EOMI intact. No nystagmus. SKIN: Dry and warm Triage Information Reviewed: Yes Vital Signs On Initial Exam: Initial Vitals Temp Pulse Resp BP Pulse Ox 97.9 F 60 16 106/72 96 01/25/19 23:01 01/25/19 23:01 01/25/19 23:01 01/25/19 23:01 01/25/19 23:01 Vital Signs Reviewed: Yes Diagnostics - Vital Signs Vital Signs Temp Pulse Resp BP Pulse Ox 01/25/19 23:01 97.9 F 60 16 106/72 96 - Laboratory Result Diagrams: 01/25/19 23:23 01/25/19 23:23 Lab Statement: Any lab studies that have been ordered have been reviewed, and results considered in the medical decision making process. - CT Brain CT Interpretation Completed By: Radiologist Summary of CT Findings: Normal noncontrast head CT. ED Provider has reviewed this report. - EKG 0004 Cardiac Rate: Bradycardia EKG Rhythm: Sinus Bradycardia ST Segment: Normal Ectopy: None Summary of EKG Findings: Normal axis, no ischemic changes. Re-Evaluation - Re-Evaluation First Eval Re-Evaluation Time: 00:20 Comment: Patient able to ambulate in the ED without any problems. Patient states he feels better and is no longer nauseous. Dizzy Course/Dx - Course Course Of Treatment: This patient is a 48 year old male brought in by EMS presenting to [facility] with a chief complaint of vertigo since [address] and EKG were unremarkable. Patient able to ambulate in the ED without any problems. Patient states he feels better and is no longer nauseous. The patient will be diagnosed with paroxysmal positional vertigo and discharged with a prescription to help manage this problem as well as instructions to follow up with his private MD tomorrow. This plan was discussed with the patient and he was agreeable with this plan. - Diagnoses Provider Diagnoses: Benign paroxysmal positional vertigo Discharge - Sign-Out/Discharge Documenting (check all that apply): Patient Departure - Discharge Patient Received Moderate/Deep Sedation with Procedure: No - Discharge Plan Condition: Stable Disposition: HOME Prescriptions: Meclizine TAB* [Antivert 12.5 TAB*] 25 mg PO TID PRN #20 tab PRN Reason: Vertigo Patient Education Materials: Benign Paroxysmal Positional Vertigo (ED) Referrals: [facility] [Outside] Additional Instructions: Follow up with private MD tomorrow. Return to ED with any new or worsening symptoms. - Attestation Statements Document Initiated by Scribe: Yes Documenting Scribe: Elias Sanchez Provider For Whom Donaldibe is Documenting (Include Credential): Ventura York MD Scribe Attestation: IElias, donaldibed for Ventura York MD on 01/26/19 at 0025. Status of Scribe Document: Ready
[2019-01-25] MEDS ORDERED: NS 0.9% 1000 ML** 1,000 ML IV ONE (23:15)
[2019-01-25] MEDS ORDERED: Meclizine TAB* 12.5 MG PO ONE (23:16)
[2019-01-25 23:31] LABS: ABS Basophils 0.1 10^3/ul (0-0.2); ABS Eosinophils 0.2 10^3/ul (0-0.6); ABS Lymphocytes 2.2 10^3/ul (1.0-4.8); ABS Monocytes 0.4 10^3/ul (0-0.8); ABS Neutrophils 4.9 10^3/ul (1.5-7.7); Eosinophil % 2.8 %; Hematocrit 41 % (42-52); Hemoglobin 14.1 g/dL (14.0-18.0); Lymphocyte % 28.4 %; Mean Corpuscular HGB Conc 34 g/dL (31-36); Mean Corpuscular Hemoglobin 30 pg (27-31); Mean Corpuscular Volume 89 fL (80-94); Nucleated Red Blood Cells % 0.1; Platelet Count 189 10^3/uL (150-450); Red Blood Count 4.67 10^6 /uL (4.18-5.48); Red Cell Distribution Width 13 % (10.5-15); White Blood Count 7.9 10^3/uL (3.5-10.8)
[2019-01-25] MEDS ORDERED: Ondansetron INJ* 2 MG/ML VIAL IV ONE (23:38)
[2019-01-25 23:48] LABS: Albumin/Globulin Ratio 1.9 (1-3); BUN/Creatinine Ratio 22.8 (8-20); Calcium 8.9 mg/dL (8.6-10.3); EGFR African American 105.8 (>60); EGFR Non-African American 87.4 (>60); Globulin 2.1 g/dL (2-4); Magnesium 1.9 mg/dL (1.9-2.7); Potassium 3.6 mmol/L (3.5-5.0); Total Bilirubin 0.4 mg/dL (0.2-1.0); Total Protein 6.1 g/dL (6.4-8.9)
[2019-01-26 00:29] VITALS: BP 115/72
== END 2019-01-26 00:49 | disposition home or self-care (01) ==
LOC: ED 22:53
DX: H81.10 Benign paroxysmal vertigo, unspecified ear (principal); R00.1 Bradycardia, unspecified
CPT/HCPCS: 36415; 70450; 80053; 83735; 85025; 93005; 96361; 96374; 99283; A9270-GY; J2405